=== PATIENT | male | born 1975 | race Two or more races ===

== ENCOUNTER 2017-01-05 01:03 | Emergency (ER) | payer OTHER ==
[~2017-01-05] VITALS: Ht 167.6 cm; Wt 129.3 kg
[2017-01-05] MEDS ORDERED: IV NORMAL SALINE 1000ML BAG 1,000 ML IV SCH (02:30)
[2017-01-05] MEDS ORDERED: FENTANYL PF 100 MCG/2 ML VIAL. IV PRN (02:30)
[2017-01-05 02:46] LABS: BASO % 0 % (0-3); EOS % 1 % (0-3); HEMATOCRIT 47.9 % (39.0-53.0); HEMOGLOBIN 16.1 g/dL (13.0-17.5); LYMPH # 1.1 x10^3/uL (1.0-4.8); LYMPH % 10 % (24-48); MEAN CORPUSCULAR HEMOGLOBIN 29 pg (25-35); MEAN CORPUSCULAR HGB CONC 34 g/dL (31-37); MEAN CORPUSCULAR VOLUME 86 fL (79-100); MONO % 7 % (0-9); NEUT % 83 % (31-73); PLATELET COUNT 293 x10^3/uL (140-400); RED BLOOD COUNT 5.54 x10^6/uL (4.30-5.70); RED CELL DISTRIBUTION WIDTH 13.1 % (11.5-14.5); WHITE BLOOD COUNT 11.5 x10^3/uL (4.0-11.0)
[2017-01-05 02:47] LABS: BILIRUBIN,URINE NEGATIVE (NEG); GLUCOSE,URINE >=1000 mg/dL (NEG); NITRITE,URINE NEGATIVE (NEG); PH,URINE 5.5; PROTEIN,URINE NEGATIVE (NEG-TRACE); UROBILINOGEN,URINE 0.2 mg/dL (0.2 mg/dL)
[2017-01-05 02:55] LABS: BACTERIA,URINE 0 /HPF (0-FEW); SQUAMOUS EPITHELIAL CELL,UR FEW /LPF; WBC,URINE OCC /HPF (0-4)
[2017-01-05 02:58] LABS: CALCIUM 9.1 mg/dL (8.5-10.1); CREATININE 0.8 mg/dL (0.7-1.3); GFR 107.6; POTASSIUM 3.9 mmol/L (3.5-5.1)
[2017-01-05] MEDS ORDERED: ONDANSETRON PF 4 MG/2 ML VIAL. IV ONE (03:00)
[2017-01-05] MEDS ORDERED: FAMOTIDINE 20 MG/2 ML VIAL IVP ONE (03:00)
--- NOTE | 2017-01-05 03:03 | PHYS DOC ---
Past Medical History Past Medical History: Diabetes-Type II, High Cholesterol, Hypertension Additional Past Medical Histor: CHRONIC KNEE PAIN Past Surgical History: Other Additional Past Surgical Histo: Bilateral knee surgery, Moreno's esophagus , HERNIA Alcohol Use: None Drug Use: None Adult General Chief Complaint Chief Complaint: ABDOMINAL PAIN HPI HPI Patient is a 41 year old male who presents with complaint of abdominal pain. Patient states that his pain started at approximately 2030 last evening approximately 2 hours after eating. The patient states that he had an episode of vomiting and shortly after his pain seemed to have eased up. Patient states however at 0030 tonight he started getting the pain. Patient states that the pain is very sharp and colicky and is located in his mid and right upper abdomen. Patient rates his pain as 6 out of 10. Patient states that he had another episode of vomiting and is still having problems with nausea currently. Patient denies any history of similar symptoms. Patient has history of type 2 diabetes mellitus and Moreno's esophagus. Patient has not taken any medications to help with his symptoms at this time. Review of Systems Review of Systems Constitutional: Sweating, Denies fever or chills [] Eyes: Denies change in visual acuity, redness, or eye pain [] HENT: Denies nasal congestion or sore throat [] Respiratory: Denies cough or shortness of breath [] Cardiovascular: Denies chest pain or edema [] GI: Abdominal pain, nausea, vomiting, diarrhea, denies bloody stools [] : Denies dysuria or hematuria [] Musculoskeletal: Denies back pain or joint pain [] Integument: Denies rash or skin lesions [] Neurologic: Denies headache, focal weakness or sensory changes [] Current Medications Current Medications Current Medications Medications (Trade) Dose Ordered Sig/Ken Start Time Stop Time Status Last Admin Dose Admin Famotidine (Pepcid) 20 mg 1X ONCE 01/05/17 03:00 01/05/17 03:01 DC 01/05/17 02:33 20 MG Fentanyl Citrate 50 mcg 50 mcg PRN Q15MIN PRN 01/05/17 02:30 01/06/17 02:29 01/05/17 02:34 50 MCG Multi-Ingredient Mouthwash/Gargle (Gi Cocktail Single Dose) 15 ml 1X ONCE 01/05/17 03:15 01/05/17 03:16 DC Ondansetron HCl (Zofran) 4 mg 1X ONCE 01/05/17 03:00 01/05/17 03:01 DC 01/05/17 02:34 4 MG Sodium Chloride (Iv Sodium Chloride 0.9% 1000ml Bag) 1,000 ml @ 1,000 mls/hr Q1H 01/05/17 02:30 01/05/17 03:29 01/05/17 02:34 1,000 MLS/HR Allergies Allergies Allergies Coded Allergies Type Severity Reaction Last Updated Verified [place] Allergy Intermediate Hives 08/01/14 No Physical Exam Physical Exam Constitutional: Alert, obese, afebrile, appears in mild to moderate discomfort. [] HENT: Normocephalic, atraumatic, bilateral external ears normal, oropharynx moist, no oral exudates, nose normal. [] Eyes: PERRLA, EOMI, conjunctiva normal, no discharge. [] Neck: Normal range of motion, no tenderness, supple, no stridor. [] Cardiovascular: Tachycardia, regular rhythm, no murmur [] Lungs & Thorax: Bilateral breath sounds clear to auscultation [] Abdomen: Bowel sounds normal, soft, epigastric and right upper quadrant tenderness to palpation, mild guarding, no rebound tenderness, no masses, no pulsatile masses. [] Skin: Warm, dry, no erythema, no rash. [] Back: No tenderness, no CVA tenderness. [] Extremities: No tenderness, no cyanosis, no clubbing, ROM intact, no edema. [] Neurologic: Alert and oriented X 3, normal motor function, normal sensory function, no focal deficits noted. [] Current Patient Data Vital Signs Vital Signs Date Time Temp Pulse Resp B/P Pulse Ox O2 Delivery O2 Flow Rate FiO2 01/05/17 01:39 97.8 103 20 139/92 96 Room Air 97.8 Lab Values Laboratory Tests Test 01/05/17 01:51 01/05/17 02:30 White Blood Count 11.5x10^3/uL (4.0-11.0) H Red Blood Count 5.54x10^6/uL (4.30-5.70) Hemoglobin 16.1g/dL (13.0-17.5) Hematocrit 47.9% (39.0-53.0) Mean Corpuscular Volume 86fL (79-100) Mean Corpuscular Hemoglobin 29pg (25-35) Mean Corpuscular Hemoglobin Concent 34g/dL (31-37) Red Cell Distribution Width 13.1% (11.5-14.5) Platelet Count 293x10^3/uL (140-400) Neutrophils (%) (Auto) 83% (31-73) H Lymphocytes (%) (Auto) 10% (24-48) L Monocytes (%) (Auto) 7% (0-9) Eosinophils (%) (Auto) 1% (0-3) Basophils (%) (Auto) 0% (0-3) Neutrophils # (Auto) 9.5x10^3uL (1.8-7.7) H Lymphocytes # (Auto) 1.1x10^3/uL (1.0-4.8) Monocytes # (Auto) 0.7x10^3/uL (0.0-1.1) Eosinophils # (Auto) 0.1x10^3/uL (0.0-0.7) Basophils # (Auto) 0.0x10^3/uL (0.0-0.2) Sodium Level 134mmol/L (136-145) L Potassium Level 3.9mmol/L (3.5-5.1) Chloride Level 98mmol/L (98-107) Carbon Dioxide Level 27mmol/L (21-32) Anion Gap 9 (6-14) Blood Urea Nitrogen 20mg/dL (8-26) Creatinine 0.8mg/dL (0.7-1.3) Estimated GFR (Cockcroft-Gault) 107.6 BUN/Creatinine Ratio 25 (6-20) H Glucose Level 304mg/dL (70-99) H Calcium Level 9.1mg/dL (8.5-10.1) Total Bilirubin 0.5mg/dL (0.2-1.0) Aspartate Amino Transferase (AST) 33U/L (15-37) Alanine Aminotransferase (ALT) 42U/L (16-63) Alkaline Phosphatase 70U/L (46-116) Total Protein 6.8g/dL (6.4-8.2) Albumin 3.3g/dL (3.4-5.0) L Albumin/Globulin Ratio 0.9 (1.0-1.7) L Lipase 140U/L (73-393) Urine Collection Type Unknown Urine Color Yellow Urine Clarity Clear Urine pH 5.5 Urine Specific [place] >=1.030 Urine Protein Negativemg/dL (NEG-TRACE) Urine Glucose (UA) >=1000mg/dL (NEG) Urine Ketones (Stick) Tracemg/dL (NEG) Urine Blood Negative (NEG) Urine Nitrite Negative (NEG) Urine Bilirubin Negative (NEG) Urine Urobilinogen Dipstick 0.2mg/dL (0.2 mg/dL) Urine Leukocyte Esterase Negative (NEG) Urine RBC 1-2/HPF (0-2) Urine WBC Occ/HPF (0-4) Urine Squamous Epithelial Cells Few/LPF Urine Bacteria 0/HPF (0-FEW) Urine Mucus Mod/LPF Laboratory Tests 01/05/17 01:51 Laboratory Tests 01/05/17 01:51 EKG EKG Not performed [] Radiology/Procedures Radiology/Procedures [facility] [address] [place] [address] IMAGING REPORT Signed PATIENT: GRANT GREWAL ACCOUNT: [id number] : 1975 LOCATION: ER AGE: 41 SEX: M EXAM STATUS: REG ER ORD. PHYSICIAN: GRANT WOOD MD REASON: right upper quadrant pain PROCEDURE: ABDOMEN LTD PROCEDURE Abdominal ultrasound 01/05/2017. HISTORY Right upper quadrant pain with nausea and vomiting for 6 hours. TECHNIQUE COMPARISON FINDINGS No focal liver lesion is seen, but the liver is enlarged and has diffuse increased echogenicity consistent with fatty infiltration. Craniocaudal length of the liver is about 24.8 centimeters. The biliary tree is not dilated. The gallbladder is free of stones or wall thickening. The right kidney, pancreas and abdominal aorta appear normal in their visualized segments. Some of the pancreas was obscured by bowel gas. IMPRESSION No acute abnormality. Hepatomegaly with fatty infiltration of the liver. Electronically signed by: Bryn Mcdowell (Jan 05, 2017 03:05:47) DICTATED and SIGNED BY: BRYN MCDOWELL Jr, MD DATE: 01/05/17 8388 CC: GRANT WOOD MD; KRISHNA BAH MD ~ [] Course & Med Decision Making Course & Med Decision Making Pertinent Labs and Imaging studies reviewed. (See chart for details) Patient was given IV fluids, Zofran, Pepcid, fentanyl, and GI cocktail. On reevaluation, patient states his symptoms have improved at this time. Patient's lab results show blood sugar of 300 and evidence of dehydration but no other significant findings. Spoke with patient regarding his blood sugars and he states that they do tend to run high. Patient's symptoms may be a common nation of viral gastroenteritis with significantly elevated blood sugars though peptic ulcer disease cannot be ruled out at this time. The patient will be discharged with Pepcid and Zofran for continued symptomatic treatment. Advise follow-up with primary doctor in 3-5 days. Recommended that if symptoms are recurrent the patient may need follow-up with a rail bender for further evaluation and possible endoscopy. Recommended that the patient return to the emergency department for any worsening or severe symptoms. Patient voiced understanding and in agreement with treatment plan. Dragon Disclaimer Dragon Disclaimer This electronic medical record was generated, in whole or in part, using a voice recognition dictation system. Departure Departure Impression: Primary Impression: Abdominal pain Additional Impression: Nausea and vomiting Disposition: 01 HOME, SELF-CARE Condition: IMPROVED Referrals: KRISHNA BAH MD (PCP) Patient Instructions: Abdominal Pain (Nonspecific), Nausea and Vomiting Additional Instructions: Follow-up to primary doctor in 3-5 days. Return to the emergency department for any worsening symptoms. Scripts Famotidine (Pepcid)20 Mg [id number] Mg PO BID #30 TAB Prov:GRANT WOOD MD 01/05/17 Ondansetron (Zofran Odt)4 Mg Tab.rapdis1 Tab SL Q8HRS PRN NAUSEA/VOMITING #15 TAB Prov:GRANT WOOD MD 01/05/17 Problem Qualifiers Primary Impression: Abdominal pain Abdominal location: epigastric Qualified Code: R10.13 - Epigastric pain Additional Impression: Nausea and vomiting Vomiting type: unspecified Vomiting Intractability: non-intractable Qualified Code: R11.2 - Nausea with vomiting, unspecified GRANT WOOD MD Jan 05, 2017 03:03
[2017-01-05 03:04] LABS: ALBUMIN 3.3 g/dL (3.4-5.0); ALBUMIN/GLOBULIN RATIO 0.9 (1.0-1.7); TOTAL BILIRUBIN 0.5 mg/dL (0.2-1.0); TOTAL PROTEIN 6.8 g/dL (6.4-8.2)
--- NOTE | 2017-01-05 03:08 | RAD ---
PROCEDURE Abdominal ultrasound 01/05/2017. HISTORY Right upper quadrant pain with nausea and vomiting for 6 hours. TECHNIQUE COMPARISON FINDINGS No focal liver lesion is seen, but the liver is enlarged and has diffuse increased echogenicity consistent with fatty infiltration. Craniocaudal length of the liver is about 24.8 centimeters. The biliary tree is not dilated. The gallbladder is free of stones or wall thickening. The right kidney, pancreas and abdominal aorta appear normal in their visualized segments. Some of the pancreas was obscured by bowel gas. IMPRESSION No acute abnormality. Hepatomegaly with fatty infiltration of the liver. Electronically signed by: Baljit Mcdowell (Jan 05, 2017 03:05:47)
[2017-01-05] MEDS ORDERED: LIDO:MAALOX:DONNATAL 1:1:1 15 ML SINGLE DOSE SWSW ONE (03:15)
[2017-01-05] MEDS ORDERED: FAMO-63 PO (03:25)
[2017-01-05] MEDS ORDERED: ONDA4TAB10 SL (03:25)
[2017-01-05 03:45] VITALS: BP 154/82
== END 2017-01-05 03:50 | disposition home or self-care (01) ==
LOC: ER 01:03
DX: R10.13 Epigastric pain (principal); R11.2 Nausea with vomiting, unspecified; E86.0 Dehydration; R10.11 Right upper quadrant pain; R00.0 Tachycardia, unspecified; E66.9 Obesity, unspecified; E11.9 Type 2 diabetes mellitus without complications; E78.00 Pure hypercholesterolemia, unspecified; I10 Essential (primary) hypertension; G89.29 Other chronic pain; K22.70 Barrett's esophagus without dysplasia; Z91.018 Allergy to other foods; Z68.42 Body mass index [BMI] 45.0-49.9, adult
CPT/HCPCS: 36415; 76705; 80053; 81001; 83690; 85027; 96361; 96374; 96375; 99285; J2405; J3010; J7030; S0028